=== PATIENT | male | born 1960 | race Caucasian/White ===

== ENCOUNTER 2020-02-12 18:24 | Emergency (ER) | payer OTHER ==
[~2020-02-12] VITALS: Ht 182.9 cm; Wt 95.3 kg
[2020-02-12] MEDS ORDERED: CIPRO500 MG/5 M (18:37)
[2020-02-12] MEDS ORDERED: TAMS0.4C (18:37)
== END 2020-02-12 20:27 | disposition home or self-care (01) ==
LOC: ER 18:24
DX: N39.0 Urinary tract infection, site not specified (principal); R33.8 Other retention of urine; R30.0 Dysuria